=== PATIENT | female | born 1955 | race Caucasian/White ===

== ENCOUNTER → 2016-02-16 08:46 | Day surgery (SDC) | payer OTHER ==
--- NOTE | 2016-02-06 09:19 | HP ---
PREOP HISTORY AND PHYSICAL: DATE OF ADMISSION/SURGERY: 02/16/16 PROCEDURE: Right knee arthroscopy, partial meniscectomy, possible chondroplasty , possible synovectomy. CHIEF COMPLAINT: Right knee pain. HISTORY OF PRESENT ILLNESS: Ms. Linda is a 60-year-old female with chronic right knee pain. She has failed conservative therapy. Therefore, she has agreed to undergo a right knee arthroscopy, partial meniscectomy, possible chondroplasty, possible synovectomy with Dr. Anderson on 02/16/16. PAST MEDICAL HISTORY: 1. GERD. 2. Hypothyroidism. 3. Depression. PAST SURGICAL HISTORY: 1. Left elbow surgery. 2. Bilateral wrist ORIF. 3. Left hip ORIF. MEDICATIONS: 1. Naproxen 500 mg 1 tablet with food by mouth twice daily. 2. Triamterene and hydrochlorothiazide 37.5/25 mg 1 by mouth daily. 3. Nexium 40 mg 1 by mouth daily. 4. 37.5 mcg as directed. 5. Pristiq 50 mg daily. ALLERGIES: No known drug allergies. FAMILY HISTORY: Mom, arthritis and heart disease. Dad, cancer and Alzheimer' s. Brother, lung cancer. SOCIAL HISTORY: The patient lives at home alone. 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 She denies tobacco, alcohol, or illegal drug use. REVIEW OF SYSTEMS: A 14-point review of systems was reviewed with the patient and is positive for night sweats, occasional chest pain, constipation, GERD, hypothyroidism. Otherwise, review of systems was negative. The patient denies prior anesthesia problems or history of DVT or PE. PHYSICAL EXAMINATION GENERAL: Well-developed, well-nourished female, in no acute distress. VITAL SIGNS: Height 65, weight 194. Pulse 72, blood pressure 115/86. BMI 32.3. HEENT: Normocephalic, atraumatic. PERRLA. Throat clear. NECK: Supple. PULMONARY: Lungs are clear to auscultation bilaterally. No wheezing, rhonchi, or rales. CARDIAC: Regular rate and rhythm. S1, S2. No murmurs, gallops, or rubs. No edema. ABDOMEN: Positive bowel sounds. Soft and nontender. MUSCULOSKELETAL: Right lower extremity, mild effusion of the right knee. Extension to 0 degrees, flexion to 120 degrees. Medial joint line tenderness. No calf tenderness or swelling. +2 DP pulse. Sensation is intact to light touch distally. NEUROLOGIC: Alert and oriented x3. Cranial nerves are grossly intact. Sensation is intact to light touch. DIAGNOSTIC STUDIES/LAB DATA: MRI reveals a lateral meniscus tear and patellofemoral osteoarthritis. IMPRESSION: Right knee lateral meniscus tear. PLAN: The patient is scheduled to undergo a right knee arthroscopy, partial meniscectomy, partial chondroplasty, possible synovectomy with Dr. Anderson on 06/27. She will return to the clinic in 10 to 14 days for postoperative followup and suture removal. A prescription for Percocet was e-scribed to the patient's pharmacy for postoperative pain management. She was told to use Colace as needed for constipation. CHAVA MCINTOSH [id number]/[facility] #: [id number] MTDGumaro
[~2016-02-16 08:46] MED LIST: Buffered Lidocaine 1% SYR 3ML* 3 ML/SYR SYRINGE INTRADERM ONE; Buffered Lidocaine 1% SYR 3ML* 3 ML/SYR SYRINGE ONE; Bupivacaine 0.5% SDV PF* 30 ML VIAL ONE; Chloroprocaine 2%* 20 ML VIAL ONE; Dexamethasone IV* 4 MG/ML 1 ML (4 MG) IV SLOW PU ONE; Dexamethasone IV* 4 MG/ML 1 ML (4 MG) ONE; EPINEPHrine AMP 1 MG/ML ONE; Famotidine IV* 10 MG/ML 2 ML (20 mg) IV ONE; Famotidine IV* 10 MG/ML 2 ML (20 mg) ONE; Ketorolac INJ* 30 MG/ML 1 ML VIAL ONE; Midazolam* 1 MG/ML 2 ML VIAL (2 MG) ONE; Midazolam* 1 MG/ML 5 ML VIAL (5 MG) ONE; Nalbuphine* 20 MG/ML 1 ML VIAL IV PRN; Ondansetron INJ* 2 MG/ML VIAL ONE; PROCHLORPERAZINE INJ 5 MG/ML 2 ML VIAL IV PRN; Phenylephrine IV* 40 MCG/ML 10 ML SYRINGE ONE; ceFAZolin 2 GM PREMIX (*) 2 GM/50 ML BAG IVPB ONE; fentaNYL* 50 MCG/ML 2 ML VIAL (100 MCG VIAL) IV PRN; fentaNYL* 50 MCG/ML 2 ML VIAL (100 MCG VIAL) ONE; methylPREDNISolone ACETATE 80* 80 MG/ML 1 ML VIAL ONE; oxyCODONE/Acetamin 5/325 MG* TAB ONE; oxyCODONE/Acetamin 5/325 MG* TAB PO PRN
[2016-02-16 16:23] VITALS: BP 97/80
--- NOTE | 2016-02-17 20:29 | OP ---
OPERATIVE REPORT: DATE OF OPERATION: 02/16/16 DATE OF : 51 SURGEON: Isha Anderson MD DIRECTOR PRISON: Zaida Lee LPN ANESTHESIOLOGIST: Dr. Emmanuel. ANESTHESIA: Spinal. PRE-OP DIAGNOSIS: Right knee pain with lateral and medial meniscal tear. POST-OP DIAGNOSIS: Right knee severe osteoarthritis, medial meniscal tear, lateral meniscal tear. OPERATIVE PROCEDURE: Right knee arthroscopy with partial lateral meniscectomy and partial medial m eniscectomy. COMPLICATIONS: None. EBL: Less than 25 cc. SPECIMEN: None. BRIEF HISTORY/INDICATION: Ms. Linda is a 60-year-old female with chronic right knee pain. Radiogra phs showed some mild to moderate osteoarthritis. She continued to have meniscal type symptoms and a meniscal tear both medially and laterally was confirmed on MRI. The patient failed conservative tr eatment and elected to undergo right knee arthroscopy with possible partial meniscectomy, synovectom y and chondroplasty. Informed consent was obtained from the patient. She understood the risks of t he procedure included but were not limited to bleeding, infection, damage to nearby structures, cont inued pain, need for further surgery, stroke, heart attack, blood clot and . She wished to pro ceed. INTRAOPERATIVE FINDINGS: Intraoperatively, the patient was noted to have a complex tear involving t he white-red zone of the posterior medial meniscus. She was also found to have a parrot-beak type t ear of the posterior horn of the lateral meniscus. Medial and patellofemoral compartments had expos ed subchondral bone with grade 3 and 4 Outerbridge cartilage changes. These were severe arthritic c hanges. DESCRIPTION OF PROCEDURE: Ms. Linda was identified in the preanesthesia unit. Her right lower extr emity was marked as the correct operative site. Informed consent was signed and placed in the chart . The patient was taken to the operating room and placed under spinal anesthesia. Right lower extr emity was prepped and draped in the usual sterile fashion. Preop time-out was made to once again co rrectly identify the patient side and site. Appropriate perioperative antibiotics were given within 1 hour of incision. A 1.5 cm standard anterolateral portal incision was made with a 15 blade and carried down through th e capsule. Trocar was introduced and the light and water sources were turned on. There was immedia te visualization of the suprapatellar pouch. A tour of the knee joint was performed. Suprapatellar pouch had no obvious abnormality. The joint fluid did have multiple small bits of cartilage floati ng. Patellofemoral compartment had obvious exposed subchondral bone and grade 3 and 4 Outerbridge ca rtilage changes. Medial gutters showed no loose body or plica. The anterior joint line did have so me mild synovitis. The medial compartment showed exposed subchondral bone along the majority of the weightbearing surface of the medial femoral condyle. Posterior medial meniscus had an obvious comp sammy tear with displaced fragments anteriorly. ACL appeared to be intact. The knee was then placed in a gsbfeh-wj-gpza position. Lateral meniscus had a parrot-beak type tear along the posterolateral horn. This involved the white-white and white-red zone. Minimal degenerative changes of the cartil age in the lateral compartment. Lateral gutter had no significant plica or loose body. Under immediate visualization, a medial portal incision was made with a 15 blade. A probe was introd uced and a second tour of the knee joint was performed. There were no additional findings noted. S traight biter and shaver were used to perform partial medial meniscectomy. A smooth border of the m edial meniscus was obtained on the border of the white-red and red-red zone. Next, radiofrequency a blation wand and shaver were used to perform partial lateral meniscectomy with the knee in a figure- of-four position. This was performed in the white-red zone along the posterior horn of the lateral meniscus. A smooth border was obtained here. Next, the knee joint was probed for any displaceable cartilage flaps and none were found. Once agai n, significant amount of exposed subchondral bone was noted in the patellofemoral and medial compar tments. The shaver was placed in the suprapatellar pouch and the knee was copiously irrigated with sterile saline until there were no visible fragments of cartilage in the joint fluid. The instrumen ts were carefully removed. The incisions were closed using 3-0 nylon suture. An intraarticular inj ection of 80 mg Depo-Medrol and 6 cc 0.25% Marcaine was placed in the knee joint. The patient's inc isions were covered with Xeroform, 4x4s, Webril, Bernabe wrap and cold pack. Her anesthesia was reverse d without difficulty. She was taken to the PACU in stable condition. Intended weightbearing will b e weightbearing as tolerated. Intended DVTs prophylaxis will be aspirin. She will follow up in 2 w eeks' time for suture removal. [id number]/[facility] #: [id number]
== END | disposition home or self-care (01) ==
LOC: OR 08:46
PROVIDERS: ATTEND Orthopaedic Surgery Adult Reconstructive Orthopaedic Surgery
DX: M23.261 Derangement of other lateral meniscus due to old tear or injury, right knee (principal); M23.221 Derangement of posterior horn of medial meniscus due to old tear or injury, right knee; M17.11 Unilateral primary osteoarthritis, right knee; E03.9 Hypothyroidism, unspecified; K21.9 Gastro-esophageal reflux disease without esophagitis
CPT/HCPCS: A9270-GY; J0171; J0690; J1040; J1100; J1885; J2250; J2400; J2405; J3010

== ENCOUNTER 2018-11-18 05:47 | Inpatient (IN) | payer MEDICARE, OTHER ==
[~2018-11-18 05:47] MED LIST changes: -Buffered Lidocaine 1% SYR 3ML* 3 ML/SYR SYRINGE INTRADERM ONE; -Buffered Lidocaine 1% SYR 3ML* 3 ML/SYR SYRINGE ONE; +Buffered Lidocaine 1% SYRIN* 1 ML/SYRINGE INTRADERM ONE; -Bupivacaine 0.5% SDV PF* 30 ML VIAL ONE; -Chloroprocaine 2%* 20 ML VIAL ONE; -Dexamethasone IV* 4 MG/ML 1 ML (4 MG) IV SLOW PU ONE; -Dexamethasone IV* 4 MG/ML 1 ML (4 MG) ONE; -EPINEPHrine AMP 1 MG/ML ONE; -Famotidine IV* 10 MG/ML 2 ML (20 mg) IV ONE; -Famotidine IV* 10 MG/ML 2 ML (20 mg) ONE; -Ketorolac INJ* 30 MG/ML 1 ML VIAL ONE; -Midazolam* 1 MG/ML 2 ML VIAL (2 MG) ONE; -Midazolam* 1 MG/ML 5 ML VIAL (5 MG) ONE; -Nalbuphine* 20 MG/ML 1 ML VIAL IV PRN; -Ondansetron INJ* 2 MG/ML VIAL ONE; -PROCHLORPERAZINE INJ 5 MG/ML 2 ML VIAL IV PRN; -Phenylephrine IV* 40 MCG/ML 10 ML SYRINGE ONE; -ceFAZolin 2 GM PREMIX (*) 2 GM/50 ML BAG IVPB ONE; -fentaNYL* 50 MCG/ML 2 ML VIAL (100 MCG VIAL) IV PRN; -fentaNYL* 50 MCG/ML 2 ML VIAL (100 MCG VIAL) ONE; -methylPREDNISolone ACETATE 80* 80 MG/ML 1 ML VIAL ONE; -oxyCODONE/Acetamin 5/325 MG* TAB ONE; -oxyCODONE/Acetamin 5/325 MG* TAB PO PRN
--- OUTSIDE RECORDS SUMMARY | 2018-11-18 05:49 | XMS REPORT | Continuity of Care Document ---
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 Onset: 10/22/2014 Peripheral tear of lateral meniscus, current Isha Anderson M.D. Onset: 2015 injury, right knee, subsequent encounter Current tear of lateral cartilage AND/OR Isha Anderson M.D. Onset: 04/02/2016 meniscus of knee Social History Type Date Description Comments Sex Unknown ETOH Use Rarely consumes alcohol Tobacco Use Start: Unknown End: Patient is a former smoker Recreational Drug Use Denies Drug Use Smoking Status Reviewed: 10/29/18 Patient is a former smoker Exercise Type/Frequency Does not exercise Yardwork Allergies, Adverse Reactions, Alerts Description No Known Drug Allergies Medications Active Medications SIG Qnty Indications Ordering Provider Date MJ Collar When Out of Bed M47.12 Vassilios 10/01/2018 MD Josef Meloxicam 1 by mouth every 60tabs M25.561 Isha Anderson 04/16/2016 15mg Tablets day M.D. Triamterene/Hydrochlor 1 by mouth every Unknown othiazide day 37.5-25mg Tablets Bupropion 1 by mouth every 90tabs Unknown Hydrochloride ER (XL) day 300mg Tablets ER 24HR Omeprazole 1 by mouth every Unknown 40mg Capsules day DR Levothyroxine Sodium 1 by mouth every Unknown day 75mcg Tablets Vitamin D by mouth Unknown 1000Unit everyday Tablets Vitamin B12 1 by mouth every Unknown 1000mcg day Tablets ER Medications Administered in Office Medication SIG Qnty Indications Ordering Provider Date Depomedrol 40MG Isha Anderson M.D. 01/14/2017 Injection Depomedrol 40MG Isha Anderson M.D. 04/16/2016 Injection Depomedrol 40MG Isha Anderson M.D. 04/25/2015 Injection Immunizations Description No Information Available Vital Signs Date Vital Result Comment 10/29/2018 3:36pm Height 65 inches 5'5" Weight 195.00 lb BP Systolic 124 mmHg BP Diastolic 84 mmHg Pain Level 8 BMI (Body Mass Index) 32.4 kg/m2 10/15/2018 9:33am Height 65 inches 5'5" Weight 195.00 lb BP Systolic 132 mmHg BP Diastolic 88 mmHg Pain Level 7 BMI (Body Mass Index) 32.4 kg/m2 Results Description No Information Available Procedures Date Code Description Status 08/26/2018 57848 Nerve Conduction 07-08 Studies Completed 08/26/2018 04685 Needle Electromyography Complete, Five Or More Muscles Completed Studied Medical Devices Description No Information Available Encounters Type Date Location Provider Dx Diagnosis Office Visit 08/20/2018 Neurosurgery Emilia Pope, M48.02 Spinal stenosis , 3:[facility] cervical region Assessments Date Code Description Provider 10/17/2018 M48.02 Spinal stenosis in cervical region Patrick Bahena MD 10/17/2018 M47.12 Other spondylosis with myelopathy, Patrick Bahena MD cervical region 10/15/2018 M48.02 Spinal stenosis in cervical region Patrick Bahena MD 10/15/2018 M47.12 Other spondylosis with myelopathy, Patrick Bahena MD cervical region 10/15/2018 M47.22 Other spondylosis with radiculopathy, Patrick Bahena MD cervical region 10/15/2018 M54.12 Radiculopathy, cervical region Patrick Bahena MD 10/01/2018 M48.02 Spinal stenosis in cervical region Patrick Bahena MD 10/01/2018 M47.12 Other spondylosis with myelopathy, Patrick Bahena MD cervical region 09/10/2018 M48.02 Spinal stenosis in cervical region Patrick Bahena MD 09/10/2018 M47.12 Other spondylosis with myelopathy, Patrick Bahena MD cervical region 09/10/2018 M47.22 Other spondylosis with radiculopathy, Patrick Bahena MD cervical region 08/26/2018 M54.12 Radiculopathy, cervical region Aleksandar Leigh MD 08/26/2018 M48.02 Spinal stenosis in cervical region Aleksandar Leigh MD 08/20/2018 M48.02 Spinal stenosis in cervical region CHAVA Farah Plan of Treatment Future Appointment(s):11/18/2018 7:30 am - CHAVA Farah at [facility]11/18/2018 7:30 am - Patrick Bahena MD at [facility]02/20/2019 9:30 am - CHAVA Farah at [facility]12/22/2018 1:30 pm - CHAVA Farah at [facility] 9:00 am - Patrick Bahena MD at [facility] Functional Status Description No Information Available Mental Status Description No Information Available Referrals Description No Information Available
--- OUTSIDE RECORDS SUMMARY | 2018-11-18 05:49 | XMS REPORT | Continuity of Care Document ---
:1955 External Reference #:[id number] Author Name Luiz Negro M.D. Address [address] [place] [address] Care Team Providers Name Role Phone Dudley Wright MD - Family Care Team Information Invasive Manager Medicine [facility] - Diagnostic Care Team Information Invasive Manager Radiology [facility] - Care Team Information Invasive Manager Physical Therapist Dudley Riojas MD - Rheumatology Care Team Information Invasive Manager Problems Active Problems Provider Date Hyperlipidemia Luiz Negro M.D. Onset: 09/23/2010 Depressive disorder Luiz Negro M.D. Onset: 05/27/2013 Hypothyroidism Luiz Negro M.D. Onset: 07/17/2013 Migraine Luiz Negro M.D. Onset: 10/26/2013 Disorder of thyroid gland Luiz Negro M.D. Onset: 09/04/2015 Gastroesophageal reflux disease Luiz Negro M.D. Onset: 01/27/2016 Degenerative joint disease involving Luiz Negro M.D. Onset: 04/15/2017 multiple joints Neck pain Luiz Negro M.D. Onset: 07/29/2018 Symptom of skin and integumentary tissue Luiz Negro M.D. Onset: 2018 Social History Type Date Description Comments Sex Unknown Tobacco Use Start: Unknown Never Smoked Cigarettes Tobacco Use Start: Unknown Nonsmoker Smoking Status Reviewed: 04/22/18 Nonsmoker Allergies, Adverse Reactions, Alerts Description No Known Drug Allergies Medications Active Medications SIG Qnty Indications Ordering Date Provider Oxycodone HCL 1 by mouth every 30tabs Luiz F. 09/04/2018 5mg Tablets 4 hours as needed Aaron Negro Diazepam 1-2 patient every 5tabs Luiz F. 08/08/2018 5mg Tablets 4 hours as needed Aaron Negro Omeprazole 1 by mouth every 90caps Luiz F. 05/30/2018 40mg Capsules day Aaron Negro DR Acetaminophen-Codeine take 1 tablet by 30tabs Luiz F. 10/15/2017 #3 mouth every 4 Aaron Negro 300-30mg Tablets hours as needed maximum daily dose of 6 per day Meloxicam take 1 tablet by 60tabs Luiz F. 07/26/2017 7.5mg Tablets mouth one to two Aaron Negro times daily prn Zolpidem Tartrate 1 by mouth every 30tabs Luiz F. 07/26/2017 5mg night at bedtime Aaron Negro Tablets as needed Imitrex Statdose 6 mg by injection 3ml Luiz F. 03/04/2015 Refill as needed for Aaron Negro 6mg/0.5ML Solution headache, may Cartridge repeat in 1 hour if necessary mdd 12 mg Levothyroxine Sodium Take 1 Tablet By 90tabs Luiz F. 07/17/2013 Mouth Every Day Aaron Negro 75mcg Tablets Sumatriptan Succinate take 1 tablet as 9tabs G43.909 Luiz F. 06/27/2011 needed, june Aaron Negro 50mg Tablets repeat in 2 hours. maximum of 9 tablets per month Triamterene/Hydrochlor Take 1 Capsule By 90caps Luiz F. 04/24/2010 othiazide Mouth Every Day Aaron Negro 37.5-25mg as Needed Capsules Xanax 1/2-1 tabs by 90tabs Luiz F. 05/24/2008 0.25mg Tablets mouth three times Aaron Negro a day as needed anxiety Vitamin D 1 by mouth every Luiz F. (Cholecalciferol) day Aaron Negro 1000Unit Tablets Bupropion 1 by mouth every Unknown Hydrochloride ER (XL) day 150mg Tablets ER 24HR B12 1 tab daily Unknown History Medications Prednisone 6 pills on day 1, 30tabs Luiz Negro, 08/29/2018 - 10mg Tablets then 4 pills on M.D. 2018 day 2, then decrease by 5 mg ( 1/2 pill) each day then stop Medrol dose-pack by 1pack Luiz Negro, 08/19/2018 - 4mg Tablets mouth as M.D. 2018 instructed, take with food Pantoprazole Sodium 1 by mouth every 90tabs Luiz Negro, 05/17/2018 - 20mg day M.D. 08/01/[address] Platt CPT Code Status Date Vaccine Lot # [id number] Given 11/23/2006 DO Not Use Split Influenza Virus Vaccine [id number] Vital Signs Date Vital Result Comment 2018 12:16pm BP Systolic 120 mmHg BP Diastolic 80 mmHg Heart Rate 72 /min Body Temperature 97.3 F Respiratory Rate 12 /min Height 64.5 inches 5'4.50" measured Weight 191.00 lb BMI (Body Mass Index) 32.3 kg/m2 07/29/2018 6:23pm BP Systolic 120 mmHg BP Diastolic 80 mmHg Heart Rate 90 /min Body Temperature 9.7 F Respiratory Rate 16 /min Weight 197.00 lb Results Test Date Facility Test Result H/L Range Note Laboratory test 05/08/2018 [facility] Thinprep SEE RESULT 1 finding w/rfx([facility]) BELOW 1 SEE RESULT BELOW Name: BELGICA LINDA : [address]: Rena Cole NP Acct: [id number] Unit: [id number] AGE: 62 Location: [facility] Re05/08/18 SEX: F Status: REG REF SPEC: [id number] BELKIS: 05/08/[address]: Rena Cole NP REQ: [id number] RECD: 05/08/18 STATUS: SOUT _ ORDERED: TP IMAGE ANALYS, HPV/Thin Prep, HPV 16/18 GENE COMMENTS: [id number] Negative for Intraepithelial lesion or Malignancy Date Time Test Result Flag (u) Normal Range 05/08/18 1646 @ HPV RNA RFLX GE Negative Negative @ @ The high-risk HPV types detected by the assay include: 16, @ 18, 31, 33, 35, 39, 45, 51, 52, 56, 58, 59, 66, and 68. A. Ectocervical/Endocervical Specimen Adequacy: Satisfactory of evaluation Transformation zone component cannot be definitely identified due to presence of atrophy or other hormonal changes Patient Information: HPV: High risk HPV RNA testing regardless of pap results. HPV 16/18 Genotype Reflex Actual Specimen Date: 05/08/18 LMP If Unknown: post ?: N Post Menopausal?: N Hysterectomy?: N Previous Abnormal Pap Smears?:N Signed by and Reported on: TRINH Spicer(ASCP) [id number] This Pap test was evaluated with the assistance of the ArcSoftPrep Test Imaging System. Due to cytologic findings at the colorectal surgeon microscope, comprehensive manual rescreening by a Electric Crane Operator may be required. The Pap Smear is a screening test designed to aid in the detection of premalignant and malignant conditions of the uterine cervix. It is not a diagnostic procedure and should not be used as the sole means of detecting cervical cancer. Both false- positive and false- negative reports do occur. Depending on your risk status, a Pap smear should be obtained and evaluated every 1-3 years. END OF REPORT DEPARTMENT OF PATHOLOGY, [address] [place] [address] Scott Arechiga M.D. Director [facility] # [id number] Procedures Date Code Description Status 07/29/2018 71942 Brief Emotional/Behav Assessment W/ Scoring Doc Per Completed Standard Inst 05/09/2018 [id number] Mammogram Completed 04/24/2017 [id number] Mammogram Completed 02/08/2015 [id number] Mammogram Completed 10/12/2014 [id number] Bone Mineral Density Test Completed 01/15/2014 [id number] Mammogram Completed 01/02/2013 [id number] Mammogram Completed 11/15/2011 [id number] Colonoscopy Completed 01/19/2011 [id number] Mammogram Completed 01/03/2010 [id number] Mammogram Completed 03/15/2008 [id number] Mammogram Completed 10/03/2006 [id number] Colonoscopy Completed 08/09/2006 [id number] Mammogram Completed 08/03/2005 [id number] Mammogram Completed Medical Devices Description No Information Available Encounters Type Date Location Provider Dx Diagnosis Office Visit 07/29/2018 Main Office Luiz Negro F32.89 Other specified 6:20p M.DAlfreda depressive episodes M15.0 Primary generalized (osteo)arthritis M54.2 Cervicalgia R23.8 Other skin changes Office Visit 05/08/2018 3:45p [facility] Office Rena Cole Z12.4 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 2018 M15.0 Primary generalized (osteo)arthritis Luiz Negro M.D. 2018 M54.2 Cervicalgia Luiz Negro M.D. 2018 E78.49 Other hyperlipidemia Luiz Negro M.D. 07/29/2018 F32.89 Other specified depressive episodes Luiz Negro M.D. 07/29/2018 M15.0 Primary generalized (osteo)arthritis Luiz Negro M.D. 07/29/2018 M54.2 Cervicalgia Luiz Negro M.D. 07/29/2018 R23.8 Other skin changes Luiz Negro M.D. 05/08/2018 Z12.4 Encounter for screening for malignant Rena Cole, ICE PLANT OPERATOR neoplasm of cervix Plan of Treatment Future Appointment(s):02/23/2019 11:00 am - Luiz Negro M.D. at [facility] [id number]/24/2018 - Luiz Negro M.D.F32.89 Other specified depressive episodesComments:She will continue her present therapy with Dr. Pulido, she is doing well on current dose of LfzxvqmdtkW73.0 Primary generalized (osteo) jexyhplnoU89.2 CervicalgiaComments:cervicalgia with symptoms of cervical radiculopathy in both armsE78.49 Other hyperlipidemiaNew Labs:Lipid Panel-[facility], Ordered: 10/24/18Comp Metabolic-[facility], Ordered: TSH ([facility]), Ordered: 10/24/18CBC Electronic-[facility], Ordered: 10/24/18AllComments:Medication Management Patient Understands medications she's taking? Yes No Are there Barriers to Adherence? Yes No Has the patient been asked about herbal supplements and therapies, and OTC meds? Yes No Patient is in excellent general medical health. She has no current medical problems. Continue Xanax to use as needed for episodes of anxiety and zolpidem for periodic insomnia. Continue Wellbutrin for chronic depressive symptoms. Repeat lab work to recheck her lipid status.I feel she is medically stable for the planned surgery by Dr. Hurtado Functional Status Description No Information Available Mental Status Description No Information Available Referrals Refer to Reason for Referral Status Appt Date Juan Johnson consult and treat jw Sent [facility] 3RD Floor CHAVA Weiss [phone] [facility] neck pain with radiculopathy jw Sent [address] [place] [address] [phone] Patrick Bahena MD moderate cervical spinal stenosis jw Scheduled [address] [id number] [phone] Rosmery Appiah MD puritic rash jw [facility] [address] [facility] [address] [place] [address] [phone] [facility] evaluate and treat Created neck and shoulder pain. Pt will call and schedule her own appt. Order faxed. LT [address] [address] [phone]
--- OUTSIDE RECORDS SUMMARY | 2018-11-18 05:49 | XMS REPORT | Continuity of Care Document ---
:1955 External Reference #:[id number] Author Name Nadir Gill M.D. 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 Active Problems Provider Date Localized, primary [...] by mouth every Unknown 40mg Capsules day Levothyroxine Sodium 1 by mouth every Unknown [...] BMI (Body Mass Index) 32.4 kg/m2 Results Test Date Facility Test Result H/L Range Note CBC No Diff 11/11/2018 [facility] White Blood 8.6 10^3/uL Normal 3.5-10.[address] [place] [address] [phone] Red Blood Count 4.54 10^6/uL Normal 3.70-4.87 Hemoglobin 13.4 g/dL Normal 12.0-16.0 Hematocrit 39 % Normal 35-47 Mean Corpuscular Volume 86 fL Normal 80-97 Mean Corpuscular Hemoglobin 30 pg Normal 27-31 Mean Corpuscular HGB Conc 34 g/dL Normal 31-36 Red Cell Distribution Width 13 % Normal 10-15 Platelet Count 350 10^3/uL Normal 150-450 Mean Platelet Volume 6.9 fL Low 7.4-10.4 Urinalysis Profile 11/11/2018 [facility] Urine Color Yellow [address] [place] [address] [phone] Urine Appearance Clear Urine Specific [place] 1.011 Normal 1.010-1.030 Urine pH 6.0 Normal 5-9 Urine Urobilinogen Negative Negative Urine Ketones Negative Negative Urine Protein Negative Negative Urine Leukocytes 2+ Abnormal Negative Urine Blood Negative Negative Urine Nitrite Negative Negative Urine Bilirubin Negative Negative Urine Glucose Negative Negative Urine White Blood Cell 2+(11-20/hpf) Abnormal Absent Urine Red Blood Cell Absent Absent Urine Bacteria Absent Absent Urine Squamous Epithelial Cell Present Abnormal Absent Inr/Protime 11/11/2018 [facility] Inr 0.85 Normal 0.82-1.[address] [place] [address] [phone] Laboratory test 11/11/2018 [facility] Partial 32.9 Normal 26.0 -38.[address] [place] [address] Time PTT [phone] Basic Metabolic 11/11/2018 [facility] Sodium 139 mmol/L Normal 135-[address] [place] [address] [phone] Potassium 4.2 mmol/L Normal 3.5-5.0 Chloride 102 mmol/L Normal 101-111 Co2 Carbon Dioxide 28 mmol/L Normal 22-32 Anion Gap 9 mmol/L Normal 2-11 Glucose 101 mg/dL High 70-100 Blood Urea Nitrogen 23 mg/dL Normal 6-24 Creatinine 1.24 mg/dL High 0.51-0.95 BUN/Creatinine Ratio 18.5 Normal 8-20 Calcium 10.1 mg/dL Normal 8.6-10.3 Egfr Non- 43.4 >60 Egfr 52.5 >60 2 Urine Culture And 11/11/2018 [facility] Urine Culture SEE RESULT [address] [place] [address] [phone] 1 Standard intensity warfarin therapeutic range: 2.0-3.0 High intensity warfarin therapeutic range: 2.5-3.5 2 Because ethnic data is not always readily available, this report includes an eGFR for both -Americans and non- Americans. The National Kidney Disease Education Program (NKDEP) does not endorse the use of the MDRD equation for patients that are not between the ages of 18 and 70, are , have extremes of body size, muscle mass, or nutritional status, or are non- or non-. According to the National Kidney Foundation, irrespective of diagnosis, the stage of the disease is based on the level of kidney function: Stage Description GFR(mL/min/1.73 m(2)) 1 Kidney damage with normal or decreased GFR 90 2 Kidney damage with mild decrease in GFR 60-89 3 Moderate decrease in GFR 30-59 4 Severe decrease in GFR 15-29 5 Kidney failure <15 (or dialysis) 3 SEE RESULT BELOW Name: BELGICA LINDA : [address]: Patrick Bahena MD Acct: [id number] Unit: [id number] AGE: 63 Location: [facility] Re11/11/18 SEX: F Status: REG REF SPEC: [id number] BELKIS: 11/11/[address] [facility] [address]: Patrick Bahena MD REQ: [id number] RECD: 11/11/18 STATUS: COMP _ SOURCE: URINE SPDESC: ORDERED: Urine Culture QUERIES: Urine Source: Clean Catch Procedure Result Reported Site Urine Culture Final 11/12/18- 1206 ML No Growth (<1,000 CFU/mL) * ML - Main Lab . END OF REPORT DEPARTMENT OF PATHOLOGY, [address] [place] [address] Scott Arechiga M.D. Director [facility] # [id number] Procedures Date Code Description Status 08/26/2018 26369 Nerve Conduction 07-08 Studies Completed 08/26/2018 31347 Needle Electromyography Complete, Five Or More Muscles Completed Studied Medical Devices Description No Information Available Encounters Type Date Location Provider Dx Diagnosis Office Visit 10/01/2018 Neurosurgery Patrick M48.02 Spinal stenosis, 4:00p [facility] Bahena MD cervical region M47.12 Other spondylosis with myelopathy, cervical region Office Visit 09/10/2018 Neurosurgery Patrick M48.02 Spinal 9:00a [facility] Bahena MD stenosis, cervical region M47.12 Other spondylosis with myelopathy, cervical region M47.22 Other spondylosis with radiculopathy, cervical region Office Visit 08/20/2018 3:00p Neurosurgery Emilia Pope M48.02 [facility] LARSEN stenosis, cervical region Assessments Date Code Description Provider [...] - CHAVA Farah at [facility]11/18/2018 7:30 am - Patrick Bahena MD at [facility]02/20/2019 9:30 am - CHAVA Farah at [facility]12/22/2018 1:30 pm - CHAVA Farah at [facility] Functional Status Description No Information Available Mental Status Description No Information Available Referrals Description No Information Available
--- OUTSIDE RECORDS SUMMARY | 2018-11-18 05:50 | XMS REPORT | Summary of Care ---
:1955 Author Organization [facility] Address [address] [facility] [place] [address] Care Team Providers Name Role Phone Luiz Negro MD Primary Care Provider Reason for Visit Reason Comments Neck Pain numbness in first two fingers bria hands, and neck pain and weakness in hands, second opinion Encounter Details Date Type Department Care Team Description 10/06/[address] [facility] Neurosurgery [place], Cervical disc [address] [facility] MD Dudley displacement ([place] [address] [address]) [phone] [place] [address] Allergies No Known Allergiesdocumented as of this encounter (statuses as of 10/06/2018) Medications Medication Sig Dispensed Refills Start Date End Date Status Omeprazole 40 MG Oral Take by mouth. 0 Active CAPSULE DELAYED RELEASE triamterene-hydrochloroth Take 1 Cap by 0 Active iazide (DYAZIDE) 37.5-25 mouth. MG Oral Cap buPROPion (WELLBUTRIN XL) Take 300 mg by 0 Active 300 MG Oral TABLET SR 24 mouth. HR LEVOTHYROXINE SODIUM PO Take 0.075 mg 0 Active by mouth. meloxicam (MOBIC) 7.5 MG Take 7.5 mg by 0 Active Oral Tab mouth. Nutritional Supplements Take by mouth. 0 Active (VITAMIN D PLUS COFACTORS) Oral Tab Cyanocobalamin (B-12) Take by mouth. 0 Active 1000 MCG Oral Cap documented as of this encounter (statuses as of 10/06/2018) Active Problems Problem Noted Date Pain in joint, pelvic region and thigh 02/27/2008 documented as of this encounter (statuses as of 10/06/2018) Social History Tobacco Use Types Packs/Day Years Used Date Never Smoker Smokeless Tobacco: Never Used Sex Assigned at Date Recorded Not on file Job Start Date Occupation Industry Not on file Not on file Not on file Travel History Travel Start Travel End No recent travel history available. documented as of this encounter Last Filed Vital Signs Vital Sign Reading Time Taken Comments Blood Pressure 123/84 10/06/2018 8:57 AM EDT Pulse - - Temperature - - Respiratory Rate - - Oxygen Saturation - - Inhaled Oxygen Concentration - - Weight 88 kg (194 lb) 10/06/2018 8:57 AM EDT Height 165.1 cm (5' 5") 10/06/2018 8:57 AM EDT Body Mass Index 32.28 10/06/2018 8:57 AM EDT documented in this encounter Progress Notes Dudley Pollack MD - 10/06/2018 9:00 AM EDT PATIENT: Belgica Linda : 1955 DATE OF SERVICE: 10/06/2018 REFERRING PRACTITIONER: Luiz Negro PRIMARY CARE PROVIDER: Luiz Negro CHIEF COMPLAINT: Chief Complaint Patient presents with Neck Pain numbness in first two fingers bria hands, and neck pain and weakness in hands, second opinion HISTORY OF PRESENT ILLNESS: Mrs. Linda is a pleasant 62-year-old female with a several month history of increasing neck pain associated with numbness in both hands. She thinks she might have some weakness in the upper extremities but not so much in the lower extremities. She received some oral steroids but did not improve. Her MRI demonstrates spinal cord compression at the C3-4 level from a central disc protrusion. Flexion-extension films demonstrate hypermobility at C4-5 and relatively static spondylosis without movementat C5-6. The C3-4 level is the only when showing cord compression on the MRI scan. She continues to work despite the pain and weakness. History reviewed. No pertinent past medical history. History reviewed. No pertinent surgical history. History reviewed. No pertinent family history. Social History Socioeconomic History Marital status: Spouse name: Not on file Number of children: Not on file Years of education: Not on file Highest education level: Not on file Occupational History Not on file Social Needs Financial resource strain: Not on file Food insecurity: Worry: Not on file Inability: Not on file Transportation needs: Medical: Not on file Non-medical: Not on file Tobacco Use Smoking status: Never Smoker Smokeless tobacco: Never Used Substance and Sexual Activity Alcohol use: Not on file Drug use: Not on file Sexual activity: Not on file Lifestyle Physical activity: Days per week: Not on file Minutes per session: Not on file Stress: Not on file Relationships Social connections: Talks on phone: Not on file Gets together: Not on file Attends restorationist service: Not on file Active member of club or organization: Not on file Attends meetings of clubs or organizations: Not on file Relationship status: Not on file Intimate partner violence: Fear of current or ex partner: Not on file Emotionally abused: Not on file Physically abused: Not on file Forced sexual activity: Not on file Other Topics Concern Not on file Social History Narrative Not on file Current Outpatient Medications Medication buPROPion (WELLBUTRIN XL) 300 MG Oral TABLET SR 24 HR Cyanocobalamin (B-12) 1000 MCG Oral Cap LEVOTHYROXINE SODIUM PO meloxicam (MOBIC) 7.5 MG Oral Tab Nutritional Supplements (VITAMIN D PLUS COFACTORS) Oral Tab Omeprazole 40 MG Oral CAPSULE DELAYED RELEASE triamterene-hydrochlorothiazide (DYAZIDE) 37.5-25 MG Oral Cap No Known Allergies REVIEW OF SYSTEMS: Psychological ROS: negative Ophthalmic ROS: negative ENT ROS: negative Hematological and Lymphatic ROS: negative Endocrine ROS: negative Respiratory ROS: no cough, shortness of breath, or wheezing Cardiovascular ROS: no chest pain or dyspnea on exertion Gastrointestinal ROS: no abdominal pain, change in bowel habits, or black or bloody stools Genito-Urinary ROS: negative Musculoskeletal ROS: See HPI Neurological ROS: See HPI PHYSICAL EXAMINATION: BP 123/84 | Ht 5' 5" (1.651 m) | Wt 194 lb (88 kg) | BMI 32.28 kg/m Body mass index is 32.28kg/m. GENERAL: alert, oriented, no acute distress. SKIN: normal, no rashes or abnormalities noted. HEENT: conjunctivae are clear, nasopharynx is with mild edema, pink mucosa, and clear secretions, oropharynx is clear. NECK: Normal range of motion LOWER BACK: Normal range of motion LUNGS: clear to auscultation bilaterally. HEART: Regular rate and rhythm without murmurs or gallops. ABDOMEN: Normal bowel sounds without distension NEUROLOGICAL: CONSTITUTIONAL: The patient appears to be in no acute distress. MUSCULOSKELETAL: Station and gait are normal. Motor tone is normal in both upper and lower extremities. Upper Extremity Deltoid Tricep Bicep Finger Extension Wrist Extension Intrinsics Cell Operator Right 5/5 4/5 4/5 5/5 5/5 5/5 5/5 Left 5/5 4/5 4/5 4/5 5/5 5/5 5/5 Lower Extremity Hip Flexion Knee Flexion Knee Extension Dorsi Flexion Plantar Flexion EHL Right 4/5 5/5 5/5 5/5 5/5 5/5 Left 4/5 5/5 5/5 5/5 5/5 5/5 NEUROLOGICAL: Oriented to time, place, and person. Memory appears to be grossly intact. Language function appears to be normal with normal receptive and motor speech function. CRANIAL NERVES: 2nd cranial nerve: Intact 3rd, 4th, and 6th cranial nerves: pupils equal round and reactive to light. Full EOMs. 5th cranial nerve: Intact 7th cranial nerve: Intact 8th cranial nerve: Intact 9th, 10th cranial nerves: Intact 11th cranial nerve: Intact. 12th cranial nerve: Intact SENSATION: Intact throughout to light touch and pin prick. REFLEXES: Biceps BR Triceps Knee Ankle Right 2+ 2+ 2+ 2+ 2+ Left 2+ 2+ 2+ 2+ 2+ Ramirez's sign: Negative Babinski: Negative Positive crossed adductors noted. COORDINATION: Vutduf-gomx-oscqck examination done well. IMPRESSION / PLAN: ICD-9-CM ICD-10-CM 1. Cervical disc displacement 722.0 M50.20 Medical decision making: This patient has cervical myelopathy with spinal stenosis from a disc protrusion at the C3-4 level. Additionally hypermobility is noted at C4-5. I have recommended anterior cervical discectomy and fusion at both levels to correct the stenosis as well as the hypermobility. Risk of surgery including hoarseness, swallowing difficulty, bleeding, infection and neurological injury up to and including paralysis were discussed with the patient. She is going to consider her options and will call the office if she wishes to schedule surgery. Author: Dudley Pollack MD 10/06/2018 09:17 documented in this encounter Plan of Treatment Health Maintenance Due Date Last Done Comments PAP SMEAR 1955 DEPRESSION SCREENING 1965 HIV SCREENING 1968 DIABETES SCREENING 10/25/1971 LIPID DISORDER SCREENING 10/25/1971 HEPATITIS C SCREENING 1993 MAMMOGRAM (SCREENING) 1993 COLONOSCOPY SCREENING 10/25/2003 ZOSTER IMMUNIZATION SERIES (1 of 2) 10/25/2003 INFLUENZA VACCINE (#1) 2018 HPV IMMUNIZATION SERIES Aged Out No longer eligible based on patient's age to complete this topic MENINGOCOCCAL VACCINE IMM Aged Out No longer eligible based on patient's age to complete this topic PNEUMOCOCCAL 0-64 YRS Aged Out No longer eligible based on patient's age to complete this topic documented as of this encounter Results Not on filedocumented in this encounter Visit Diagnoses Diagnosis Cervical disc displacement - Primary Displacement of cervical intervertebral disc without myelopathy documented in this encounter Insurance Payer Benefit Plan / Subscriber ID Effective Dates Phone Address Type Group [employer] COMMERCIAL AETNA [facility] xxxxxxxxxx 2013-Present [employer] (Work) documented as of this encounter
[2018-11-18] MEDS ORDERED: Dexamethasone IV* 4 MG/ML 1 ML (4 MG) IV SLOW PU ONE (06:00)
[2018-11-18] MEDS ORDERED: Lactated Ringers 1000 ML Bag* 1,000 ML IV SCH ×2 (06:00→12:00)
[2018-11-18] MEDS ORDERED: Lidocaine 1% w EPI 1:200,000* SDV 30 ML VIAL ONE (06:38)
[2018-11-18] MEDS ORDERED: Bacitracin INJECTION* 50,000 UNITS ONE (06:38)
[2018-11-18] MEDS ORDERED: ceFAZolin 2 GM in NS PREMIX(*) 2 GM/100 ML BAG IVPB ONE (06:40)
[2018-11-18] MEDS ORDERED: Dexamethasone IV* 4 MG/ML 1 ML (4 MG) ONE (06:40)
[2018-11-18] MEDS ORDERED: fentaNYL* 50 MCG/ML 5 ML VIAL (250 MCG VIAL) ONE (07:27)
[2018-11-18] MEDS ORDERED: Propofol* 10 MG/ML 20 ML BTL ONE (07:27)
[2018-11-18] MEDS ORDERED: Ondansetron INJ* 2 MG/ML VIAL ONE (07:27)
[2018-11-18] MEDS ORDERED: Midazolam* 1 MG/ML 5 ML VIAL (5 MG) ONE (07:27)
[2018-11-18] MEDS ORDERED: EPHEDrine (Pressors)* 50 MG/ML VIAL ONE (07:35)
[2018-11-18] MEDS ORDERED: Propofol* 100 ML ONE (07:38)
[2018-11-18] MEDS ORDERED: Propofol* 500 MG/50 ML BTL ONE (07:39)
[2018-11-18] MEDS ORDERED: Phenylephrine 40 MCG/ML SYRINGE ONE (08:30)
[2018-11-18] MEDS ORDERED: Ondansetron INJ* 2 MG/ML VIAL IV PRN (08:54)
[2018-11-18] MEDS ORDERED: Naloxone* 0.4 MG/ML 1 ML VIAL IV PRN (08:54)
[2018-11-18] MEDS ORDERED: DiMENhydriNATE IV* 50 MG/ML VIAL IV PUSH PRN (08:54)
[2018-11-18] MEDS ORDERED: fentaNYL* 50 MCG/ML 2 ML VIAL (100 MCG VIAL) ONE ×4 (09:08→11:35)
[2018-11-18] MEDS ORDERED: HYDROmorphone INJ1* 1 MG/ML SYRINGE ONE (11:17)
[2018-11-18] MEDS: fentaNYL* 50 MCG/ML 2 ML VIAL (100 MCG VIAL) IV PRN ×4 (11:18→12:21)
[2018-11-18] MEDS: HYDROmorphone INJ1* 1 MG/ML SYRINGE IV PRN ×2 (11:19→11:30)
[2018-11-18] MEDS: HYDROcodone/ACETAMIN 5-325 MG* 1 TAB PO PRN ×2 (13:48→19:42)
[2018-11-18] MEDS ORDERED: HYDROmorphone INJ* 0.5 MG/0.5 ML SYRINGE ONE (15:55)
[2018-11-18] MEDS ORDERED: HYDROmorphone INJ* 0.5 MG/0.5 ML SYRINGE IV SLOW PU PRN (15:59)
--- NOTE | 2018-11-18 20:40 | OP ---
DATE OF SURGERY: 11/18/18 - ROOM #350 DATE OF : [birth year] SURGEON: Patrick Bahena MD. LINE SUPERVISOR: Emilia Pope, Surgical PA. The case was done with the assistance of surgical PA because of the complexity of the case. ANESTHESIA: General. PRE-OP DIAGNOSES: 1. Degenerative disk disease. 2. Myelopathy. POST-OP DIAGNOSES: 1. Degenerative disk disease. 2. Myelopathy. OPERATIVE PROCEDURE: The patient underwent anterior cervical diskectomy and fusion at C3-4 with PEEK interbody cage, with autologous local bone graft, DBX , plate and screws with intraoperative monitoring. ESTIMATED BLOOD LOSS: 15 cc. COMPLICATIONS: None. SUMMARY: The patient is a very pleasant 63-year-old female with complaints of neck pain and findings of cervical spondylotic myelopathy with MRI findings consistent with severe stenosis at C3-4 with cord signal changes. She was offered the options of surgical intervention at C3-4 level. The patient does have degenerative disk at C5-6 level, but we agreed to address the most important problem at first and she understood that she may need to have additional procedures in the future. After explaining the expectations, limitations, and possible complications of the procedure to the patient and her son with complications including, but not limited to, bleeding, infection, risk of injury to adjacent structures, coma, paralysis, , need for additional procedures, anesthesia risks, stroke, blindness, cancer, instability , hardware failure, adjacent level disease, pseudoarthrosis, recurrent laryngeal nerve injuries, spinal fluid leak, Nell syndrome, need for tracheostomy or gastrostomy, need for prolonged ICU stay, prolonged hospitalization, prolonged rehabilitation, postoperative hematoma formation, scar formation, infection, deep venous thrombosis, pulmonary embolism, anesthesia risk, the patient was agreeable to proceed with surgery and informed consent was obtained. The patient understood that her condition may not improve and in fact may get worse after surgery and that the goal of the surgery is to stabilize her condition and some of her symptoms may not be reversible. The patient understood that the operative plan may be modified according to intraoperative findings and conditions and that the procedure may be aborted or done in more than 1 stages. The patient understood that she may require prolonged ICU stay, prolonged hospitalization, prolonged rehabilitation , and that she may require additional procedures in the future. DESCRIPTION OF PROCEDURE: The patient was brought to the operating room and was placed under general anesthesia by anesthesia team. She was carefully positioned supine on Mateus table and all bony prominences were meticulously padded. Her skin was prepped and draped in the standard fashion, and after appropriate surgical pause and patient identification, a transverse incision over the C3-4 disk space was marked from the skin with the help of intraoperative fluoroscopic imaging. The incision site was infiltrated with local anesthetic and #10 surgical blade was used to incise the skin. The Incision was carried down to the platysma with Bovie cautery. The skin was undermined with tenotomy scissors. The platysma then was gently elevated and divided with the tenotomy scissors. The platysma was gently undermined with tenotomy scissors and self-retaining retractors were introduced into the field. The plane between the medial border of the sternocleidomastoid and the medial structures was then gently developed with sharp and blunt dissection. The omohyoid muscle was then isolated and divided very carefully with Bovie cautery. The prevertebral fascia was identified and the anterior portion of the spine was carefully exposed. Intraoperative fluoroscopic imaging confirmed appropriate surgical level and 2 [place] pins were placed in the vertebral bodies of C3 and C4 while the self-retaining shawdowline retractors were introduced into the field and secured in place. A standard diskectomy was performed at C3-4 level after appropriate level confirmation with fluoroscopic imaging and second surgical time-out. The annulus fibrosus was divided with the use of # 15 surgical blade and the diskectomy was carried down with the use of pituitary rongeurs, Kerrison punches and curettes and high-speed drill. Bone from the diskectomy and disk space preparation phase was saved for the arthrodesis part of the procedure. Intraoperative microscope was brought into the field and the diskectomy was completed with use of #1 Kerrison to divide the posterior ligament. The thecal sac was found to be under significant compression as expected from preoperative imaging. After copious irrigation and confirmation of meticulous hemostasis and after meticulous inspection, the thecal sac was found to be free of any pressure phenomenon. Foraminotomies were performed bilaterally. After appropriate sizing of the disk space an 8 mm height PEEK interbody cage from [employer] was introduced into the disc space after being filled with locally harvested bone graft and DBX putty. A 21 mm Zevo Medtronic plate was then placed in the anterior portion of the C3 and C4 vertebral body after removing the [place] pins. Fluoroscopic imaging confirmed excellent placement of all hardware. Self-retaining retractors were then removed and the wound was copiously irrigated and after meticulous hemostasis was confirmed with meticulous inspection, it was closed by layers over a Justin drain, which was tunneled through a separate stab wound incision. 2-0 interrupted Vicryl sutures were used to approximate the platysma while the subcutaneous tissue was approximated with 2-0 inverted interrupted Vicryl sutures. The skin was then approximated with Dermabond and covered with sterile dressings. At the end of the procedure, all counts were reported to be correct. The patient remained hemodynamically stable throughout the case. Intraoperative electrophysiological monitoring remained stable throughout the case. The patient was then extubated, and was transferred to Recovery in excellent condition. The case was done with the assistance of surgical PA because of the complexity of the case. [id number] #: [id number] MARISA
--- NOTE | 2018-11-18 21:14 | CONS ---
CC: Dr. Luiz Negro; Dr. Patrick Bahena* CONSULTATION REPORT: DATE OF CONSULT: 11/18/18 REASON FOR CONSULT: Medical management post cervical surgery. HISTORY OF PRESENT ILLNESS: This is a 63-year-old female with past medical history of gastroesophageal reflux disease, hypothyroidism, depression, lower extremity edema for which she takes combination diuretics, she states she does not have high blood pressure. She was brought in for cervical spine diskectomy and fusion for cervical stenosis by Dr. Bahena. Postoperatively, the patient was still complaining of some pain, but otherwise denies any other symptoms such as shortness of breath, chest pain, abdominal pain, nausea, vomiting, or diarrhea. No other fever, chills, or any urinary burning sensation. PAST MEDICAL HISTORY: As mentioned, gastroesophageal reflux disease, hypothyroidism, depression, and a history of lower extremity edema, which she is unable to give the reason for. She denies any clots. She denies any congestive heart failure, and she denies any venous sufficiency and at home is prescribed triamterene/hydrochlorothiazide combination medication. PAST SURGICAL HISTORY: She has had left elbow surgery, bilateral wrist ORIF, left hip ORIF, right knee arthroscopy with partial lateral and medial meniscectomy, cervical stenosis status post diskectomy and fusion today. HOME MEDICATIONS: The patient is on: 1. Triamterene/hydrochlorothiazide 37.5/25 one tablet every morning. 2. Meloxicam 7.5 mg oral daily. 3. Synthroid 75 mcg oral daily. 4. Esomeprazole 40 mg every morning. 5. Cyanocobalamin 1000 mcg p.o. every morning. 6. Vitamin D3 1000 units oral every morning. 7. Wellbutrin 300 mg oral every morning. 8. Tylenol Extra Strength 1 tablet every 8 hours. FAMILY HISTORY: Mother has arthritis, congestive heart failure. Father had cancer and Alzheimer disease. Brother had lung cancer. SOCIAL HISTORY: She lives at home. She denies any smoking, alcohol, or illegal drug use. 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 REVIEW OF SYSTEMS: A 14-point review of systems did not reveal any information. PHYSICAL EXAM: Vital Signs: BP was noted to be 106/59, heart rate 99, respiration rate 17, saturating 97% on 2 L nasal cannula, temperature 98.8. General: The patient is awake, alert, and oriented x3, did not appear to be in any acute respiratory distress. Head and Neck Examination: Atraumatic, normocephalic. Bilateral pupils reactive. Neck: The patient was noted to be in a cervical collar. Heart Examination: S1, S2. Regular rate and rhythm. Lungs: Clear to auscultation bilaterally. No wheezing, rhonchi, or rales. Abdomen: Soft, nontender, nondistended. Extremities: No cyanosis, clubbing, or edema. DIAGNOSTIC STUDIES/LAB DATA: Most recent labs from 11/11/18 showed hemoglobin, hematocrit, and platelet count were all within normal limits. Coagulation profile within normal limits. Basic metabolic panel at that time also showed a minimally elevated creatinine of 1.24. IMPRESSION: This is a 63-year-old female with gastroesophageal reflux disease, hypothyroidism, depression, lower extremity edema, and cervical stenosis status post surgical correction, doing well. ASSESSMENT: 1. Gastroesophageal reflux disease. We will restart her PPI. 2. History of depression. We will restart her Wellbutrin. 3. History of hypothyroidism. Restart her levothyroxine. 4. History of lower extremity edema. For now, we will monitor her as she does not have any edema and hold her triamterene/hydrochlorothiazide until either she has edema or her blood pressure worsens. 5. DVT prophylaxis: The patient is already on sequential compression device. 6. Code status: The patient is full code with her sister and son being the healthcare proxy. [id number]/[facility] #: [id number] MTDD
[2018-11-19] MEDS: HYDROcodone/ACETAMIN 5-325 MG* 1 TAB PO PRN ×3 (02:42→15:48)
[2018-11-19] MEDS ORDERED: Levothyroxine TAB* 75 MCG TAB PO SCH (06:00)
[2018-11-19] MEDS ORDERED: BuPROPion XL* 300 MG TAB.XL PO SCH (09:00)
[2018-11-19] MEDS ORDERED: Cholecalciferol TAB* 1000 UNITS PO SCH (09:00)
[2018-11-19] MEDS ORDERED: Pantoprazole TAB * 40 MG TAB PO SCH (09:00)
[2018-11-19] MEDS ORDERED: Cyanocobalamin TAB* 500 MCG PO SCH (09:00)
[2018-11-19 12:16] VITALS: BP 125/68
--- NOTE | 2018-11-19 13:22 | PN ---
Progress Note - Progress Note Date of Service: 11/19/18 SOAP: Subjective: [] 63 y/o female post ACDF of C3/C4 POD # 1, she had no acute issues over night. Her pain has been well controlled with the medication .She has some numbness and tingling in her upper extremities, but feels the symptoms are episodic now. Her VALERIA drain put out 25 ml over night. She has been ambulating independently around the room, has been able to void, but has not had a bowel movement. Overall she doing well would like to possible to go home. Objective: [] Temp Pulse Resp BP SpO2 FiO2 98.1 F 74 16 125/68 98 11/19/18 12:16 11/19/18 12:16 11/19/18 12:16 11/19/18 12:16 11/19/18 12:16 General:Patient sitting upright in bed comfortable NAD Frio J collar in place Neuro: A&O x 3, CN II - XII grossly intact, Pupils equal in size, Upper motor strength left 5/5 throughout. right upper 4+/5 with throughout, lower extremity motor strength 5/5 bilateral, sensation intact with light touch. Derm: wound C/D/I VALERIA drain intact . Assessment: []63 y/o female post ACDF at C3/C4 POD #1 patient doing well, pain well controlled stable will possible go home today. Plan: [] 1) D/C drain 2) Follow up cervical Xrays this morning 3) pain control as needed 4) D/C planning
--- NOTE | 2018-11-19 14:51 | PN ---
Subjective Date of Service: 11/19/18 Interval History: Ms. Linda is feeling well today. She continues to have neck pain which radiates to bilat shoulders. She rates it 7/10 at the worst and 2/10 at the best. Pain medications are very helpful. Denies CP, SOB, N/V, dizziness. No concerns from nursing. Family History: Unchanged from Admission Social History: Unchanged from Admission Past Medical History: Unchanged from Admission Objective Active Medications: Hydrocodone Bitart/Acetaminophen ([place] 5-325 Tab*) 2 tab PO Q4H PRN PAIN - MODERATE Bupropion HCl (Bupropion Xl*) 300 mg PO QAM MICAELA Cholecalciferol (Vitamin D Tab*) 1,000 units PO QAM MICAELA Cyanocobalamin (Vitamin B12 Tab*) 1,000 mcg PO QAM MICAELA Hydromorphone HCl (Dilaudid Inj*) 0.5 mg IV SLOW PU Q4H PRN PAIN - MODERATE Lactated Ringer's (Lactated Ringers 1000 Ml Bag*) 1,000 mls @ 75 mls/hr IV .per rate MICAELA Levothyroxine Sodium (Synthroid Tab*) 75 mcg PO 0600 MICAELA Pantoprazole Sodium (Protonix Tab*) 40 mg PO QAM MICAELA Vital Signs - 8 hr 11/19/18 11/19/18 11/19/18 08:08 08:20 08:30 Temperature 97.7 F Pulse Rate 76 Respiratory 17 20 16 Rate Blood Pressure 136/72 (mmHg) O2 Sat by Pulse 97 98 Oximetry 11/19/18 11/19/18 12:11 12:16 Temperature 98.1 F 98.1 F Pulse Rate 78 74 Respiratory 16 16 Rate Blood Pressure 141/57 125/68 (mmHg) O2 Sat by Pulse 92 98 Oximetry Oxygen Devices in Use Now: None Appearance: Middle-aged female sitting in bed in NAD Ears/Nose/Mouth/Throat: Mucous Membranes Moist Neck: NL Appearance and Movements; NL JVP, Trachea Midline Respiratory: Symmetrical Chest Expansion and Respiratory Effort, Clear to Auscultation Cardiovascular: NL Sounds; No Murmurs; No JVD, RRR Abdominal: NL Sounds; No Tenderness; No Distention Extremities: No Edema Neurological: Alert and Oriented x 3 Lines/Tubes/Other Access: Clean, Dry and Intact Peripheral IV Nutrition: Taking PO's Assess/Plan/Problems-Billing Assessment: Ms. Linda is a 63 yo F with PMH of GERD, hypothyroidism, depression, and LE edema; who presented to [facility] for an elective cervical discectomy and fusion. Hospital Medicine was asked to consult for co-medical management. - Patient Problems (1) Status post cervical discectomy Code(s): Z98.890 - OTHER SPECIFIED POSTPROCEDURAL STATES Comment: - POD #1 cervical discectomy and fusion - Management per Neurosurgery (2) Lower extremity edema Code(s): R60.0 - LOCALIZED EDEMA Comment: - No edema noted on exam today - Hold Diazide for now, but can resume at d/c (3) GERD (gastroesophageal reflux disease) Code(s): K21.9 - GASTRO-ESOPHAGEAL REFLUX DISEASE WITHOUT ESOPHAGITIS Comment : - Continue pantoprazole (4) Hypothyroidism Code(s): E03.9 - HYPOTHYROIDISM, UNSPECIFIED Comment: - Continue levothyroxine (5) Depression Code(s): F32.9 - MAJOR DEPRESSIVE DISORDER, SINGLE EPISODE, UNSPECIFIED Comment: - Continue bupropion (6) DVT prophylaxis Code(s): Z29.9 - ENCOUNTER FOR PROPHYLACTIC MEASURES, UNSPECIFIED Comment: - SCDs (7) Full code status Code(s): Z78.9 - OTHER SPECIFIED HEALTH STATUS Comment: Status and Disposition: Dispo per Neurosurgery. Thank you for this consultation. The patient is stable for d/c from a Hospital Medicine standpoint and can resume her usual home medications. Please call with any questions or concerns. Attending: Sinai Jones
--- NOTE | 2018-11-21 00:15 | DS ---
DISCHARGE SUMMARY: DATE OF ADMISSION: 11/18/18 DATE OF DISCHARGE: 11/19/18 ATTENDING PHYSICIAN: Dr. Bahena.* (DICTATED BY CHAVA BRADFORD) DIAGNOSIS ON ADMISSION: Cervical stenosis at C3-C4. DIAGNOSIS ON DISCHARGE: Cervical spondylosis at C3-C4. DISPOSITION ON DISCHARGE: Good. PLACE OF DISCHARGE: Home. HOSPITAL COURSE: This is a very pleasant 63-year-old female with complaints of neck pain and findings of cervical spondylitic myelopathy with MRI findings consistent with severe stenosis at C3-C4 with core signal changes. She was offered options of surgical intervention at C3-C4. The patient does have degenerative disk disease at C5-C6 as well but we agreed to address this most important problem first, and she understood that she may need additional procedures in the future. After explaining the expectations, limitations, and possible complications of the procedures to the patient and her son, she was consented for surgery. She underwent a cervical diskectomy and fusion at C3-C4 with PEEK interbody cages with autologous local bone graft, DBX, plate and screws with intraoperative monitoring. The patient tolerated the procedure well , was admitted to short stay unit after surgery for 24-hour observation. The patient did well. She was able to eat, drink, and swallow without any issues. She had mild discomfort but was able to tolerate the food and liquids orally. The patient did well. By the next day, was ready for discharge. She was discharged with instructions of no heavy lifting, bending, or twisting. Also no driving. Avoid pools or hot tubs also. Follow up with primary care in 1 week and follow up with Neurosurgery in 1 week for wound check. The patient was given medications on discharge for pain control. She understood the instructions and was comfortable with going home. The patient was sent home. Thank you for allowing me to be a part of this patient's care. CHAVA BRADFORD [id number]/[facility] #: [id number] MTDD
== END 2018-11-19 15:50 | disposition home or self-care (01) | DRG 472 ==
LOC: AA 05:47 → SSU 11:17
PROVIDERS: ADMIT Neurological Surgery; ATTEND Neurological Surgery
PROC: 0RB30ZZ Excision of Cervical Vertebral Disc, Open Approach (ICD-10-PCS; 2018-11-18)
PROC: 0RG10A0 Fusion of Cervical Vertebral Joint with Interbody Fusion Device, Anterior Approach, Anterior Column, Open Approach (ICD-10-PCS; principal; 2018-11-18 07:30)
DX: M47.12 Other spondylosis with myelopathy, cervical region (principal); M50.022 Cervical disc disorder at C5-C6 level with myelopathy; M48.02 Spinal stenosis, cervical region; F32.9 Major depressive disorder, single episode, unspecified; K21.9 Gastro-esophageal reflux disease without esophagitis; E03.9 Hypothyroidism, unspecified; E66.9 Obesity, unspecified; R60.0 Localized edema; Z82.49 Family history of ischemic heart disease and other diseases of the circulatory system; Z87.891 Personal history of nicotine dependence; Z80.1 Family history of malignant neoplasm of trachea, bronchus and lung; Z82.0 Family history of epilepsy and other diseases of the nervous system; Z68.31 Body mass index [BMI] 31.0-31.9, adult
CPT/HCPCS: 72040; 76000; A9270-GY; C1713; C1776; J0690; J1100; J1170; J2001; J2250; J2405; J2704; J3010

== ENCOUNTER 2018-12-18 00:17 | Emergency (ER) | payer OTHER ==
[2018-12-18] MEDS ORDERED: Proparacaine 0.5% OPHTH.SOL* 15 ML BTL RIGHT EYE ONE (00:22)
--- OUTSIDE RECORDS SUMMARY | 2018-12-18 00:25 | XMS REPORT | Continuity of Care Document ---
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 Active Problems Provider Date Localized, primary [...] Use Denies Drug Use Smoking Status Reviewed: 12/12/18 Patient is a former smoker Exercise Type/Frequency Does not exercise Yardwork Allergies, Adverse Reactions, Alerts Description No Known Drug Allergies Medications Active Medications SIG Qnty Indications Ordering Provider Date Hydrocodone 1 every 6 hours 30tabs M47.12 Vassilios 11/26/2018 Bitartrate/Acetaminoph as needed pain MD Josef en 5-325mg Tablets Oxycodone-Acetaminophe 1 tab by mouth 30tabs Vassilios 11/19/2018 n every 4 - 6 MD Josef 10-325mg Tablets hours as needed pritchard MJ Collar When Out of Bed M47.12 Vassilios 10/01/2018 MD Josef Triamterene/Hydrochlor 1 by mouth every Unknown othiazide [...] Available Vital Signs Date Vital Result Comment 12/12/2018 9:30am Height 65 inches 5'5" Weight 183.00 lb Heart Rate 88 /min BP Systolic Sitting 120 mmHg BP Diastolic Sitting 84 mmHg Body Temperature 98.4 F Pain Level 0 BMI (Body Mass Index) 30.4 kg/m2 11/26/2018 9:07am Height 65 inches 5'5" Weight 184.00 lb Heart Rate 93 /min BP Systolic 130 mmHg BP Diastolic 90 mmHg Respiratory Rate 16 /min Body Temperature 97.7 F Pain Level 1 BMI (Body Mass Index) 30.6 kg/m2 Results Test Acquired Date Facility Test Result H/L Range Note CBC No Diff 11/11/2018 [facility] White Blood 8.6 10^3/uL Normal 3.5-10.[address] [place] [address] [phone] Red Blood Count 4.54 10^6/uL Normal 3.70-4.87 Hemoglobin 13.4 g/dL Normal 12.0-16.0 Hematocrit 39 % Normal 35-47 Mean Corpuscular Volume 86 fL Normal 80-97 Mean Corpuscular Hemoglobin 30 pg Normal 27-31 Mean Corpuscular HGB Conc 34 g/dL Normal 31-36 Red Cell Distribution Width 13 % Normal 10-15 Platelet Count 350 10^3/uL Normal 150-450 Mean Platelet Volume 6.9 fL Low 7.4-10.4 Urinalysis Profile 11/11/2018 [facility] Urine Color Yellow [address] [place] [address] [phone] Urine Appearance Clear Urine Specific [place] 1.011 Normal 1.010-1.030 Urine pH 6.0 Normal [...] Epithelial Cell Present Abnormal Absent Inr/Protime 11/11/2018 [facility] Inr 0.85 Normal 0.82-1.[address] [place] [address] [phone] Laboratory test 11/11/2018 [facility] Partial 32.9 Normal 26.0 -38.0 finding [address] [facility] [place] [address] Time PTT [phone] Basic Metabolic 11/11/2018 [facility] Sodium 139 mmol/L Normal 135-[address] [place] [address] [phone] Potassium 4.2 mmol/L Normal 3.5-5.0 Chloride 102 mmol/L Normal 101-111 Co2 Carbon Dioxide 28 mmol/L Normal 22-32 Anion Gap 9 mmol/L Normal 2-11 Glucose 101 mg/dL High 70-100 Blood Urea Nitrogen 23 mg/dL Normal 6-24 Creatinine 1.24 mg/dL High 0.51-0.95 BUN/Creatinine Ratio 18.5 Normal 8-20 Calcium 10.1 mg/dL Normal 8.6-10.3 Egfr Non- 43.4 >60 Egfr 52.5 >60 2 Urine Culture And 11/11/2018 [facility] Urine Culture SEE RESULT [address] [place] [address] [phone] 1 Standard intensity warfarin therapeutic range: 2.0-3.0 [...] [address]: Patrick Bahena MD Acct: [id number] Unit: [id number] AGE: 63 Location: [facility] Re11/11/18 SEX: F Status: REG REF SPEC: [id number] BELKIS: 11/11/[address] [facility] [address]: Patrick Bahena MD REQ: [id number] RECD: 11/11/18 STATUS: COMP _ SOURCE: URINE SPDESC: ORDERED: Urine Culture QUERIES: Urine Source: Clean Catch Procedure Result Reported Site Urine Culture Final 11/12/18- 1206 ML No Growth (<1,000 CFU/mL) * ML - Main Lab . END OF REPORT DEPARTMENT OF PATHOLOGY, [address] [place] [address] Scott Arechiga M.D. Director [facility] # [id number] Procedures Date Code Description Status 11/18/2018 19290 Insertion Interbody Biomechanical Device; Each Interspace Completed 11/18/2018 55870 Insertion Interbody Biomechanical Device; Each Interspace Completed 11/18/2018 91245 Anterior Instrumentation 2-3 Vertebral Segments Completed 11/18/2018 14991 Anterior Instrumentation 2-3 Vertebral Segments Completed 11/18/2018 69042 arthrodesis,anterior interbody incl disc space Completed prep,discectomy,de 11/18/2018 80561 arthrodesis,anterior interbody incl disc space Completed prep,discectomy,de 11/18/201830228 Autograft For Spine Surgery (Incls Harvesting The Graft) Completed 11/18/2018 Allograft For Spine Surgery, Morselized Completed 08/26/2018 90833 Nerve Conduction - Studies Completed 08/26/2018 34748 Needle Electromyography Complete, Five Or More Muscles Completed Studied Medical Devices Description No Information Available Encounters Type Date Location Provider Dx Diagnosis Office Visit 11/19/2018 [facility] Madonna Jeremiah, HOME HEALTH CARE SOCIAL WORKER K21.9 Gastro- esophageal 2:36p grazyna Agudelo reflux disease Hospitalists without esophagitis E03.9 Hypothyroidism, unspecified F32.9 Major depressive disorder, single episode, unspecified Office 11/18/2018 [facility] Nenita K21.9 Gastro-esophageal Visit 2:36p Assgrazyna mcleod M.D. reflux disease without Hospitalists esophagitis F32.9 Major depressive disorder, single episode, unspecified E03.9 Hypothyroidism, unspecified Office Visit 10/15/2018 [facility] M48.02 Spinal 9:30a [facility] Bahena MD stenosis, cervical region M47.12 Other spondylosis with myelopathy, cervical region M47.22 Other spondylosis with radiculopathy, cervical region Office Visit 10/01/2018 [facility] M48.02 Spinal 4:00p [facility] Bahena MD stenosis, cervical region M47.12 Other spondylosis with myelopathy, cervical region Office Visit 09/10/2018 [facility] M48.02 Spinal 9:00a [facility] Bahena MD stenosis, cervical region M47.12 Other spondylosis with myelopathy, cervical region M47.22 Other spondylosis with radiculopathy, cervical region Office Visit 08/20/2018 3:00p Neurosurgery Emilia Torresoy, M48.02 [facility] CHAVA stenosis, cervical region Assessments Date Code Description Provider 11/26/2018 Z48.89 Encounter for other specified surgical Patrick Bahena MD aftercare 11/19/2018 K21.9 Gastro-esophageal reflux disease without Madonna Jeremiah, HOME HEALTH CARE SOCIAL WORKER esophagitis 11/19/2018 E03.9 Hypothyroidism, unspecified Madonna Jeremiah, HOME HEALTH CARE SOCIAL WORKER 11/19/2018 F32.9 Major depressive disorder, single episode, Madonna Jeremiah, HOME HEALTH CARE SOCIAL WORKER unspecified 11/18/2018 M47.12 Other spondylosis with myelopathy, Patrick Bahena MD cervical region 11/18/2018 K21.9 Gastro-esophageal reflux disease without Nenita Fernandez M.D. esophagitis 11/18/2018 M48.02 Spinal stenosis in cervical region Patrick Bahena MD 11/18/2018 F32.9 Major depressive disorder, single episode, Nenita Fernandez M.D. unspecified 11/18/2018 E03.9 Hypothyroidism, unspecified Nenita Fernandez M.D. 10/29/2018 M48.02 Spinal stenosis in cervical region CHAVA Farah 10/29/2018 M47.12 Other spondylosis with myelopathy, CHAVA Farah cervical region 10/29/2018 M47.22 Other spondylosis with radiculopathy, CHAVA Farah cervical region 10/17/2018 M48.02 Spinal stenosis in cervical region Patrick Bahena MD 10/17/2018 M47.12 Other spondylosis with myelopathy, Patrick Bahena MD cervical region 10/15/2018 M48.02 Spinal stenosis in cervical region Patrick Bahena MD 10/15/2018 M47.12 Other spondylosis with myelopathy, Patrick Bahena MD cervical region 10/15/2018 M47.22 Other spondylosis with radiculopathy, Patrick Bahena MD cervical region 10/01/2018 M48.02 Spinal stenosis in cervical region [...] region CHAVA Farah Plan of Treatment Future Appointment(s):01/16/2019 9:30 am - CHAVA Farah at [facility]02/20/2019 9:30 am - CHAVA Farah at [facility] Functional Status Description No Information Available Mental Status Description No Information Available Referrals Description No Information Available
--- OUTSIDE RECORDS SUMMARY | 2018-12-18 00:25 | XMS REPORT | Continuity of Care Document ---
:1955 External Reference #:[id number] Author Name Patrick Bahena MD (transmitted by agent of provider Nancy Figueroa ) Address [address] [place] [address] Care Team Providers Name Role Phone Luiz Negro MD - Family Medicine Care Team Information [employer] [phone] Problems Active Problems Provider Date Localized, primary [...] Available Vital Signs Date Vital Result Comment 11/26/2018 9:07am Height 65 inches 5'5" Weight 184.00 lb Heart Rate 93 /min BP Systolic 130 mmHg BP Diastolic 90 mmHg Respiratory Rate 16 /min Body Temperature 97.7 F Pain Level 1 BMI (Body Mass Index) 30.6 kg/m2 10/29/2018 3:36pm Height 65 inches 5'5" Weight 195.00 lb BP Systolic 124 mmHg BP Diastolic 84 mmHg Pain Level 8 BMI (Body Mass Index) 32.4 kg/m2 Results Test Date Facility Test Result H/L Range Note CBC No Diff 11/11/2018 [facility] White Blood 8.6 10^3/uL Normal 3.5-10.[address] [place] [address] [phone] Red Blood Count 4.54 10^6/uL Normal 3.70-4.87 Hemoglobin 13.4 g/dL Normal 12.0-16.0 Hematocrit 39 % Normal 35-47 Mean Corpuscular Volume 86 fL Normal 80-97 Mean Corpuscular Hemoglobin 30 pg Normal 27-31 Mean Corpuscular HGB Conc 34 g/dL Normal 31-36 Red Cell Distribution Width 13 % Normal 10-15 Platelet Count 350 10^3/uL Normal 150-450 Mean Platelet Volume 6.9 fL Low 7.4-10.4 Urinalysis Profile 11/11/2018 [facility] Urine Color Yellow [address] [place], [place] [id number] [phone] Urine Appearance Clear Urine Specific [place] 1.011 Normal 1.010-1.030 Urine pH 6.0 Normal [...] Epithelial Cell Present Abnormal Absent Inr/Protime 11/11/2018 [facility] Inr 0.85 Normal 0.82-1.[address] [place] [address] [phone] Laboratory test 11/11/2018 [facility] Partial 32.9 Normal 26.0 -38.[address] [address] Time PTT [phone] Basic Metabolic 11/11/2018 [facility] Sodium 139 mmol/L Normal 135-145 Panel [address] [place] [address] [phone] Potassium 4.2 mmol/L Normal 3.5-5.0 Chloride 102 mmol/L Normal 101-111 Co2 Carbon Dioxide 28 mmol/L Normal 22-32 Anion Gap 9 mmol/L Normal 2-11 Glucose 101 mg/dL High 70-100 Blood Urea Nitrogen 23 mg/dL Normal 6-24 Creatinine 1.24 mg/dL High 0.51-0.95 BUN/Creatinine Ratio 18.5 Normal 8-20 Calcium 10.1 mg/dL Normal 8.6-10.3 Egfr Non- 43.4 >60 Egfr 52.5 >60 2 Urine Culture And 11/11/2018 [facility] Urine Culture SEE RESULT [address] [place] [address] [phone] 1 Standard intensity warfarin therapeutic range: 2.0-3.0 [...] [address]: Patrick Bahena MD Acct: [id number] Unit: [id number] AGE: 63 Location: [facility] Re11/11/18 SEX: F Status: REG REF SPEC: [id number] BELKIS: 11/11/18 [facility] DR: Patrick Bahena MD REQ: [id number] RECD: 11/11/18 STATUS: COMP _ SOURCE: URINE SPDESC: ORDERED: Urine Culture QUERIES: Urine Source: Clean Catch Procedure Result Reported Site Urine Culture Final 11/12/18- 1206 ML No Growth (<1,000 CFU/mL) * ML - Main Lab . END OF REPORT DEPARTMENT OF PATHOLOGY, [address] [place] [address] Scott Arechiga M.D. Director [facility] # [id number] Procedures Date Code Description Status 08/26/2018 17747 Nerve Conduction 07-08 Studies Completed 08/26/2018 83929 Needle Electromyography Complete, Five Or More Muscles Completed Studied Medical Devices Description No Information Available Encounters Type Date Location Provider Dx Diagnosis Office Visit 10/01/2018 [facility] M48.02 Spinal stenosis, 4:[facility] Bahena MD cervical region M47.12 Other spondylosis with myelopathy, cervical region Office Visit 09/10/2018 [facility] M48.02 Spinal 9:00a [facility] Bahena MD stenosis, cervical region M47.12 Other spondylosis with myelopathy, cervical region M47.22 Other spondylosis with radiculopathy, cervical region Office Visit 08/20/2018 3:00p [facility] Em[facility] Pope, M48.02 [facility]ARS[facility] stenosis, cervical region Assessments Date Code Description Provider 11/26/2018 M47.12 Other spondylosis with myelopathy, Patrick Bahena MD cervical region 11/26/2018 M48.02 Spinal stenosis in cervical region Patrick Bahena MD 11/26/2018 M47.22 Other spondylosis with radiculopathy, Patrick Bahena MD cervical region 10/29/2018 M48.02 Spinal stenosis in cervical region CHAVA Farah 10/29/2018 M47.12 Other spondylosis with myelopathy, CHAVA Farah cervical region 10/17/2018 M48.02 Spinal [...] region CHAVA Farah Plan of Treatment Future Appointment(s):02/20/2019 9:30 am - CHAVA Farah at [facility]12/22/2018 1:30 pm - CHAVA Farah at [facility]11/26/2018 - Patrick Bahena, MDM47.12 Other spondylosis with myelopathy, cervical regionNew Medication:Hydrocodone Bitartrate/Acetaminophen 5 -325 mg - 1 every 6 hours as needed painNew Therapy:Physical IcpsjwpA20.02 Spinal stenosis, cervical goazpmD14.22 Other spondylosis with radiculopathy, cervical region Functional Status Description No Information Available Mental Status Description No Information Available Referrals Description No Information Available
[2018-12-18] MEDS ORDERED: Fluorescein Sodium TOPICAL* 1 MG TEST STRIP OPHTHALMIC ONE (01:31)
--- NOTE | 2018-12-18 01:47 | ED ---
Throat Pain/Nasal Congestion - HPI Summary HPI Summary: Patient was hit in right eye with some twigs, complains of pain to right eye since. Denies contact lens. Denies vision change. Denies any other pain, injury or symptoms. - History of Current Complaint Chief Complaint: EDEyeProblem Time Seen by Provider: 12/18/18 01:29 Hx Obtained From: Patient Onset/Duration: Sudden Onset, Lasting Hours Severity: Moderate Associated Signs And Symptoms: Positive: Negative Cough: None - Allergies/Home Medications Allergies/Adverse Reactions: Allergies Allergy/AdvReac Type Severity Reaction Status Date / Time No Known Allergies Allergy Verified 12/18/18 00:21 PMH/Surg Hx/FS Hx/Imm Hx Endocrine/Hematology History: Reports: Hx Thyroid Disease - HYPOTHYROIDISM Denies: Hx Diabetes Cardiovascular History: Denies: Hx Hypertension, Hx Pacemaker/ICD Respiratory History: Denies: Hx Asthma GI History: Reports: Hx Gastroesophageal Reflux Disease - CONTROL WITH MEDS, Hx Hiatal Hernia History: Denies: Hx Dialysis, Hx Renal Disease Musculoskeletal History: Reports: Hx Arthritis - BILATERAL KNEES AND HANDS Sensory History: Reports: Hx Contacts or Glasses - READING GLASSES Denies: Hx Hearing Aid Opthamlomology History: Reports: Hx Contacts or Glasses - READING GLASSES EENT History: Denies: Hx Deafness Neurological History: Reports: Hx Migraine - OCCASIONALLY Psychiatric History: Reports: Hx Anxiety, Hx Depression - CONTROL WITH MED Denies: Hx Panic Disorder - Cancer History Hx Chemotherapy: No Hx Radiation Therapy: No - Surgical History Surgery Procedure, Year, and Place: 2009 LEFT HIP LABRAL TEAR REPAIR, [facility];. 1964 LEFT [place], [facility] [place]. 2004 RIGHT THUMB TENDON REPAIR, [facility] [place]; Hx Anesthesia Reactions: No Infectious Disease History: No Infectious Disease History: Reports: Hx Shingles - 8 YEARS AGO Denies: Hx Clostridium Difficile, Hx Hepatitis, Hx Human Immunodeficiency Virus (HIV), Hx of Known/Suspected MRSA, Hx Tuberculosis, History Other Infectious Disease, Traveled Outside the [place] in Last 30 Days - Family History Known Family History: Positive: Non-Contributory - Social History Alcohol Use: Occasionally Substance Use Type: Reports: None Smoking Status (MU): Former Smoker Type: Cigarettes Have You Smoked in the Last Year: No Review of Systems Constitutional: Negative Positive: Other ENT: Negative Cardiovascular: Negative Respiratory: Negative Gastrointestinal: Negative Genitourinary: Negative Musculoskeletal: Negative Skin: Negative Neurological: Negative Psychological: Normal All Other Systems Reviewed And Are Negative: Yes Physical Exam Triage Information Reviewed: Yes Vital Signs On Initial Exam: Initial Vitals Temp Pulse Resp BP Pulse Ox 96.9 F 86 16 148/93 100 12/18/18 00:18 12/18/18 00:18 12/18/18 00:18 12/18/18 00:18 12/18/18 00:18 Vital Signs Reviewed: Yes Appearance: Positive: Well-Appearing Skin: Positive: Warm Head/Face: Positive: Normal Head/Face Inspection Eyes: Positive: Conjunctiva Inflammed ENT: Positive: Normal ENT inspection Neck: Positive: Supple Respiratory/Lung Sounds: Positive: Clear to Auscultation Cardiovascular: Positive: Normal Abdomen Description: Positive: Nontender Musculoskeletal: Positive: Normal Neurological: Positive: Normal Psychiatric: Positive: Normal AVPU Assessment: Alert - Jl Coma Scale Best Eye Response: 4 - Spontaneous Best Motor Response: 6 - Obeys Commands Best Verbal Response: 5 - Oriented Coma Scale Total: 15 Procedures - Sedation Patient Received Moderate/Deep Sedation with Procedure: No Diagnostics - Vital Signs Vital Signs Temp Pulse Resp BP Pulse Ox 12/18/18 00:18 96.9 F 86 16 148/93 100 - Laboratory Lab Statement: Any lab studies that have been ordered have been reviewed, and results considered in the medical decision making process. EENT Course/Dx - Course Course Of Treatment: Patient was hit in right eye with some twigs, complains of pain to right eye since. Denies contact lens. Denies vision change. Denies any other pain, injury or symptoms. Vital signs within normal limits. - Diagnoses Provider Diagnoses: Corneal abrasion, right Discharge ED - Sign-Out/Discharge Documenting (check all that apply): Patient Departure - Discharge Plan Condition: Stable Disposition: HOME Patient Education Materials: Corneal Abrasion (ED) Referrals: Luiz Negro MD [Primary Care Provider] - Additional Instructions: One drop of antibiotic solution in right eye every 4 hours. Call your cash applications specialist tomorrow morning to set up appointment for further evaluation and to make sure eye is healing correctly. - Billing Disposition and Condition Condition: STABLE Disposition: Home
[2018-12-18] MEDS ORDERED: Gentamicin 0.3% OPHTH.SOLN* 5 ML BTL RIGHT EYE ONE (02:00)
[2018-12-18 02:40] VITALS: BP 131/83
== END 2018-12-18 02:39 | disposition home or self-care (01) ==
LOC: ED 00:17
DX: S05.01XA Injury of conjunctiva and corneal abrasion without foreign body, right eye, initial encounter (principal); W22.8XXA Striking against or struck by other objects, initial encounter; Y92.9 Unspecified place or not applicable; E03.9 Hypothyroidism, unspecified; K21.9 Gastro-esophageal reflux disease without esophagitis; F41.9 Anxiety disorder, unspecified; F32.9 Major depressive disorder, single episode, unspecified; Z87.891 Personal history of nicotine dependence; Z79.899 Other long term (current) drug therapy
CPT/HCPCS: 99281; A9270-GY